=== PATIENT | female | born 1965 | race Caucasian/White ===

== ENCOUNTER 2017-04-26 18:32 | Emergency (ER) | payer BC ==
[2017-04-26 19:05] VITALS: BP 147/81
--- NOTE | 2017-04-26 19:38 | EDM.PDOC ---
ED HPI GENERAL MEDICAL PROBLEM - General Chief Complaint: Upper Extremity Injury/Pain Stated Complaint: LEFT SHOULDER PAIN Time Seen by Provider: 04/26/17 19:00 Source of Information: Reports: Patient, Family History Limitations: Reports: No Limitations - History of Present Illness INITIAL COMMENTS - FREE TEXT/NARRATIVE: 51-year-old female who has had left shoulder and upper left arm pain for the past 6-8 weeks, she's had several chiropractic visits as well as her primary care visit with Dr. Jones. That was 3-4 weeks ago when he injected steroid into the anterior aspect of her left shoulder. That seemed to help for some time but she continues to have weakness, and today she was opening a car door and felt a pop sensation with marked increased pain in the anterior aspect of the upper left arm. She now has significant pain with movement. There is no swelling but there was a warmth sensation in the arm initially. She points to the anterior aspect of the upper bicep as a source of pain. Onset: Sudden (The increased pain was a sudden onset tonight with activity) Location: Reports: Upper Extremity, Left Left Upper Shoulder Pain Score (Numeric/FACES): 9 - Related Data Allergies Allergy/AdvReac Type Severity Reaction Status Date / Time fluconazole [From Diflucan] Allergy Nausea and Verified 04/26/17 19:05 Vomiting tramadol Allergy Nausea and Verified 04/26/17 19:05 Vomiting Home Meds: Home Meds Ibuprofen [Advil] 800 mg PO Q8HR PRN 04/25/13 [History] Cholecalciferol (Vitamin D3) [Vitamin D] 2,000 unit PO DAILY 09/26/13 [History] Fluticasone Propionate [Flonase] 1 spray NASBOTH BID 09/26/13 [History] Multivitamin [Multi Vitamin Daily] 1 each PO DAILY 09/26/13 [History] Biotin [Meribin] 5 mg PO DAILY 12/16/14 [History] Omeprazole [Prilosec] 40 mg PO DAILY 12/16/14 [History] Ranitidine [Zantac] 150 mg PO BID PRN 12/16/14 [History] rOPINIRole [Requip] 1 mg PO BEDTIME 12/16/14 [History] Carboxymethylcellulose Sodium [Refresh Tears] 1 drop EYEBOTH ASDIRECTED 10/24/ 17 [History] Past Medical History HEENT History: Reports: Impaired Vision, Sinusitis 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: Musculoskeletal History: Reports: Fracture Oncologic (Cancer) History: Reports: Uterine - Past Surgical History Female Surgical History: Reports: Hysterectomy Other Musculoskeletal Surgeries/Procedures:: foot surgery-bunion Social & Family History - Tobacco Use Smoking Status *Q: Never Smoker Second Hand Smoke Exposure: No - Recreational Drug Use Recreational Drug Use: No Review of Systems - Review of Systems Review Of Systems: See Below Respiratory: Reports: No Symptoms Cardiovascular: Reports: No Symptoms GI/Abdominal: Reports: No Symptoms Skin: Denies: Bruising Neurological: Reports: Other (She has carpal tunnel symptoms in the left wrist) Psychiatric: Reports: No Symptoms ED EXAM, GENERAL - Physical Exam Exam: See Below Exam Limited By: No Limitations General Appearance: Alert, No Apparent Distress (She is somewhat uncomfortable but not distressed) Respiratory/Chest: No Respiratory Distress Extremities: Other (Exam is otherwise limited to the left arm and shoulder. She has point tenderness to palpation over the anterior left shoulder and left upper bicep. There is no defect or bogginess, no Dayo sign. She has intense pain with flexion of the arm against resistance, and cannot abduct the shoulder past 90.) Course - Vital Signs Last Recorded V/S: Last Vital Signs Temp 97.5 F 04/26/17 19:04 Pulse 82 04/26/17 19:04 Resp 16 04/26/17 19:04 BP 147/81 H 04/26/17 19:04 Pulse Ox 96 04/26/17 19:04 - Orders/Labs/Meds Orders: Active Orders 24 hr Category Date Time Status DME for Discharge [COMM] Stat Oth 04/26/17 19:27 Ordered - Re-Assessments/Exams Free Text/Narrative Re-Assessment/Exam: 04/26/17 19:36 I suspect this patient may have a bicipital tendon injury possibly combined with a rotator cuff problem. I will set her up to see our orthopedic surgeon, Dr. Washington on and offered her a sling for comfort. She'll watch for bruising and swelling, return sooner if worsening but I suspect she needs an orthopedic examine possibly MRI of the shoulder or arm to assess the injury. I' m concerned that she had a steroid injection which I think was worthwhile but may have inadvertently weakened some soft tissue. She declined pain medication. Departure - Departure Time of Disposition: 19:47 Disposition: Home, Self-Care 01 Condition: Good Clinical Impression: Unspecified injury of muscle, fascia and tendon of other parts of biceps, left arm, subsequent encounter - Discharge Information Instructions: Shoulder Pain Referrals: Chava Ferris MD [Primary Care Provider] - Forms: ED Department Discharge Care Plan Goals: Wear sling for comfort but remove arm from sling several times daily for gentle range of motion. Recheck with Dr. Girma Washington or Conchita Valentin of the orthopedics Department on . - My Orders Last 24 Hours: My Active Orders 04/26/17 19:27 DME for Discharge [COMM] Stat - Assessment/Plan Last 24 Hours: My Active Orders 04/26/17 19:27 DME for Discharge [COMM] Stat
== END 2017-04-26 19:47 | disposition home or self-care (01) ==
LOC: JP.ED 18:32
DX: S46.202D Unspecified injury of muscle, fascia and tendon of other parts of biceps, left arm, subsequent encounter (principal); X58.XXXD Exposure to other specified factors, subsequent encounter; Z88.5 Allergy status to narcotic agent; Z88.8 Allergy status to other drugs, medicaments and biological substances
CPT/HCPCS: 99283

== ENCOUNTER 2020-08-06 13:13 | Day surgery (SDC) | payer BC, OTHER ==
[2020-08-06] MEDS ORDERED: Nozin Nasal Sanitizer NASBOTH ONE (13:38)
[2020-08-06] MEDS ORDERED: Lactated Ringers 1,000 ML IV SCH (13:40)
[2020-08-06] MEDS ORDERED: Scopolamine 1.5 MG Transdermal Patch TOP SCH (14:00)
[2020-08-06] MEDS ORDERED: ceFAZolin 2 GM in Premix Bag 1 BAG IV ONE (14:00)
[2020-08-06] MEDS ORDERED: Bupivacaine 0.5% 50 ML MDV ONE (15:05)
[2020-08-06 19:04] VITALS: BP 118/51; PULSE 51
--- NOTE | 2020-08-11 22:52 | OR ---
DATE OF PROCEDURE: 08/06/2020 SURGEON: Singh Nails MD DIRECTOR OF HOTEL: LACIE Anthony. PREOPERATIVE DIAGNOSIS: Osteoarthritis carpometacarpal joint, right thumb. POSTOPERATIVE DIAGNOSIS: Osteoarthritis carpometacarpal joint, right thumb. PROCEDURE: Interposition arthroplasty, CMC joint right thumb using Arthrosurface SpeedSpiral implant, size 15 x 15. INDICATIONS: Michell is a 55-year-old female with a history of progressive pain at the base of her right thumb for the past several months. She has tried conservative measures including activity modification, bracing, and injections. X-rays show significant osteoarthritis of the CMC joint with complete loss of joint space and proximal subluxation of the 1st metacarpal. She now presents for interposition arthroplasty of the CMC joint. Risks, benefits, potential complications of the procedure were discussed. DESCRIPTION OF PROCEDURE: After adequate anesthesia was obtained, the patient was placed supine with a tourniquet about the upper arm. The arm was prepped and draped in a sterile fashion, exsanguinated and tourniquet inflated to 250 mmHg pressure. A lazy S shaped incision was made over the CMC joint, carried down to the subcutaneous tissues. Subcutaneous sensory nerve branches were identified and retracted. Incision was then made adjacent to the tendon and carried down into the joint capsule. With traction on the thumb, capsular incision was extended along the volar and dorsal aspect of the CMC joint. Dissection continued using combination of 15 blade and [place] elevator. Once the trapezius was partially freed up, a rongeur was used to remove the bone in a piecemeal fashion. It was taken back to the joint capsule. Once this was removed, a SpeedSpiral spacing trial was utilized and a 13 x 13 was initially chosen. The thumb was again distracted for placement of an anchoring suture in the flexor carpi radialis. In preparing to do this, it was noted that additional bone was still present and this was removed with a rongeur as well. Orthocord suture was placed through the flexor carpi radialis and portion of the capsule. Once the additional bone was removed, the initial implant and the trials indicated that a larger implant was needed. A 15 x 15 was then selected. Pin with a loop was then placed through the implant and used to pass the Orthocord sutures. Implant was slid down over the sutures into position and sutures were then tied down firmly in place. The wound was irrigated. The capsule was closed with 0 Vicryl. The skin was closed with 3-0 Monocryl and Steri-Strips were applied. The wound and the surrounding tissues were infiltrated with 0.5% Marcaine without epinephrine. Sterile dressing was applied. A thumb spica splint was then applied. The patient tolerated the procedure well and was taken from the operating room in stable condition. Singh Nails MD /[id number] MTDD
== END 2020-08-06 19:30 | disposition home or self-care (01) ==
LOC: JP.SDS 13:13
PROVIDERS: ATTEND Specialist
DX: M18.11 Unilateral primary osteoarthritis of first carpometacarpal joint, right hand (principal); K21.9 Gastro-esophageal reflux disease without esophagitis
CPT/HCPCS: 27447; 36415; 80053; 85027; A9270; J0690; J3490; J7120; 25447; C1762; C1768

== ENCOUNTER → 2021-04-01 | Day surgery (SDC) | payer BC ==
[~2021-04-01] MED LIST: Bupivacaine 0.5% 30 ML SDV ONE; Lactated Ringers 1,000 ML IV SCH; Lactated Ringers 1,000 ML ONE; Lidocaine 0.5% 50 ML SDV ONE; Midazolam 1 MG/ML 2 ML SDV ONE; Nozin Nasal Sanitizer NASBOTH ONE; Propofol 200 MG/20 ML SDV ONE; Scopolamine 1.5 MG Transdermal Patch TOP ONE; ceFAZolin 2 GM in Premix Bag 1 BAG IV ONE; fentaNYL 100 MCG/2 ML SDV ONE
[2021-04-01 18:12] VITALS: BP 112/51; PULSE 71
--- NOTE | 2021-04-09 08:21 | OR ---
DATE OF PROCEDURE: 04/08/2021 SURGEON: Singh Nails MD PREOPERATIVE DIAGNOSES: 1. Dorsal intercalary segment instability, right wrist. 2. Osteoarthritis, midcarpal joints, right wrist. 3. Stenosing tenosynovitis right 5th finger POSTOPERATIVE DIAGNOSES: 1. Dorsal intercalary segment instability, right wrist. 2. Osteoarthritis, midcarpal joints, right wrist. 3. Stenosing tenosynovitis right 5th finger PROCEDURE: 1. Intercarpal fusion, 4-corner, right wrist. 2. Release or A-1 dang right 5th finger INSPECTOR PLUMBING: LACIE Jacob ANESTHESIA: Uche block with sedation. INDICATIONS: Michell is a 55-year-old female with a history of progressive right wrist pain. X-ray and CT scan revealed dorsal intercalary segment instability(DISI) with degenerative changes throughout the carpal joints. She now presents for reduction of the DISI deformity and intercarpal fusion. Risks, benefits, and potential complications of the procedure were discussed. DESCRIPTION OF PROCEDURE: After adequate anesthesia was obtained, the right hand and wrist were prepped and draped in a sterile fashion. A small transverse incision was made in the distal palmar crease overlying the flexor tendons of the 5th finger. Blunt dissection was carried down over the tendon sheath and the A1 dang. The A1 dang was identified, and a 15-blade scalpel was used to divide the A1 dang under direct visualization. Division of the dang was continued proximally and distally with a tenotomy scissors, completely releasing the tendons at this level. The tendons were evaluated with no evidence of degenerative change or breakdown. The wound was closed with 3-0 Monocryl in a simple fashion. Attention was turned to the dorsum of the wrist, where a longitudinal incision was made over the midline of the wrist. This was carried down through the subcutaneous tissues. Planes were developed medially and laterally. The extensor retinaculum was divided over the common extensor tendons. These were released and retracted ulnarly. Further dissection was carried out to the extensor pollicis longus, which was retracted radially. The retinaculum was opened in a Z fashion to allow closure without tension. The terminal branch of the posterior interosseous nerve was identified and approximately one centimeter was resected over the capsule. A longitudinal incision was then made in the wrist capsule including the midcarpal joints. The capsule was elevated sharply with a 15 blade medially and laterally. The capitolunate joint was identified, and significant malalignment was noted. This could be reduced with dorsal pressure on the capitate. The remaining portion of the scaphoid was excised and saved for potential bone grafting. The capsule over the intercarpal joints was debrided. Using a combination of small curved and straight osteotomes as well as a rongeur, articular cartilage was removed from the intercarpal joints, taking special care at the capitolunate joint as well as the hamate. The compression guide for the Synthes variable-angle plate was centered over the carpal joints and pinned in position. A reamer was then placed through the guide and taken down to the 1st indicated level for minimum resection to allow flush position of the plate. Once it was confirmed that the plate would sit in a flush position, compression was taken off the clamp. Demineralized bone matrix putty was placed throughout and over the intercarpal joints, and the joints were then compressed once again. The plate was positioned, and initial fixation was obtained with a locking screw into the lunate. Position was confirmed fluoroscopically. Additional fixation was then obtained into the capitate and extended over into the ulnar column bones. Position of all screws was checked fluoroscopically. Once all screws were in set position, they were then tightened down using the torque screwdriver attachment. Additional demineralized bone matrix putty was then placed through the open screw holes over the fusion. The remainder of the wrist was irrigated. The capsule was closed over this in an interrupted fashion with 2-0 Vicryl. The retinaculum was closed over the extensor digitorum communis tendons with 2-0 Vicryl in an interrupted fashion without tension. The skin was closed with 2-0 Vicryl and running 3-0 Monocryl. Wound margins and the wrist were infiltrated with 0.5% Marcaine. A sterile dressing was applied with a well- padded volar splint. The patient tolerated the procedure well. There were no complications. Taken from the operating room in stable condition. Singh Nails MD /[id number] PAULO
== END ==
LOC: JP.SDS 08:09
PROVIDERS: ATTEND Specialist
DX: M19.031 Primary osteoarthritis, right wrist (principal); M25.331 Other instability, right wrist; M65.841 Other synovitis and tenosynovitis, right hand; K21.9 Gastro-esophageal reflux disease without esophagitis
CPT/HCPCS: 25820; 26055; 36415; 76000; 80053; 85027; A9270; C1713; J0690; J2250; J2704; J3010; J3490; J7120

== ENCOUNTER 2024-12-10 08:25 | Day surgery (SDC) | payer BC ==
[2024-12-10] MEDS ORDERED: fentaNYL 50 MCG/ML SDV ONE (09:14)
[2024-12-10] MEDS ORDERED: Propofol 200 MG/20 ML SDV ONE (09:14)
[2024-12-10] MEDS: Scopalamine 1mg/3day Transdermal Patch TOP STA (09:22)
[2024-12-10] MEDS: Lactated Ringers 1,000 ML IV SCH (09:23)
[2024-12-10] MEDS ORDERED: Ondansetron 4 MG/2 ML SDV ONE (09:47)
[2024-12-10] MEDS ORDERED: Dexamethasone 4 MG/ML SDV ONE (09:47)
[2024-12-10 11:52] VITALS: BP 142/63; PULSE 63
== END 2024-12-10 12:03 | disposition home or self-care (01) ==
LOC: JP.SDS 08:25
PROVIDERS: ATTEND Surgery
DX: Z12.11 Encounter for screening for malignant neoplasm of colon (principal)
CPT/HCPCS: 45378; A9270; J1100; J2405; J2704; J3010; J7120; 00812-QZ